=== PATIENT | female | born 1975 | race Asian ===

== ENCOUNTER 2018-04-06 08:06 | Emergency (ER) | payer OTHER ==
[~2018-04-06] VITALS: Wt 78.0 kg
[2018-04-06 08:09] VITALS: BP 130/62; PULSE 111; RESP 18
[2018-04-06] MEDS ORDERED: LORA1TAB PO (08:30)
[2018-04-06] MEDS ORDERED: RISP2TAB93 PO (08:30)
--- NOTE | 2018-04-06 08:35 | ERD ---
ER Documentation Chief Complaint Chief Complaint MEDICATION REFILL HPI This 42-year-old female presents with medication refill referral request. She has a history of bipolar, schizoaffective, anxiety. Is currently homeless but living in a group home. She is awaiting her primary care appointment which is a new doctor. She is recently states that she was in a relationship breakup in another city and is waiting to get her medical care reestablished. She is requesting refills on Risperdal and Ativan. She currently takes Zoloft and Zyprexa as well but has sufficient supply. She denies any homicidal or suicidal ideations, recent illnesses, fevers, chest pain, shortness of breath. ROS All systems reviewed and are negative except as per history of present illness. Medications Home Meds Active Scripts Lorazepam* (Lorazepam*) 1 Mg Tablet, 2 MG PO Q8, #20 TAB Prov:SAHRA SULTANA MD 04/06/18 Risperidone* (Risperdal*) 2 Mg Tablet, 2 MG PO DAILY, #30 TAB Prov:SAHRA SULTANA MD 04/06/18 FmHx Family History: No diabetes, No coronary disease, No other Physical Exam Vitals Vital Signs Date Temp Pulse Resp B/P (MAP) Pulse Ox O2 O2 Flow FiO2 Time Delivery Rate 04/06/18 98.1 111 18 130/62 99 08:09 (84) Physical Exam Const: No acute distress Head: Atraumatic Eyes: Normal Conjunctiva ENT: Normal External Ears, Nose and Mouth. Neck: Full range of motion. No meningismus. Resp: Clear to auscultation bilaterally Cardio: Regular rate and rhythm, no murmurs Abd: Soft, non tender, non distended. Normal bowel sounds Skin: No petechiae or rashes Back: No midline or flank tenderness Ext: No cyanosis, or edema Neur: Awake and alert. Decreased affect, denies homicidal or suicidal ideations. Psych: Normal Mood and Affect Procedures/MDM Patient presents with a history of schizoaffective, anxiety, bipolar requesting medication refills while she awaits psychiatric and primary care in [place] [facility] [place]. Patient is referred to local community health centers although she does have an appointment pending. Patient was advised on prescriptions of benzodiazepines out of the ER. In a short course until she can get in with primary care but advised recurrent refills are not appropriate. We will give her a refill of her Risperdal as well 2 mg daily. Patient denies any homicidal or suicidal ideations and is otherwise well-appearing, has group home and is able to navigate the community. The patient was stable with no new complaints during the ER course. Clinically, there is no current evidence to suggest meningitis, sepsis, acute abdomen, pneumonia, stroke, acute coronary syndrome, pulmonary embolism, aortic dissection or any other emergent condition appearing to require further evaluation or hospitalization. Patient counseled regarding my diagnostic impression and care plan. Prior to discharge all questions answered. Pt agrees with treatment plan and understands strict return precautions. Pt is instructed to follow up with primary care provider within 24-48 hours. Precautionary instructions provided including instructions to return to the ER if not improving or for any worsening or changing symptoms or concerns. Departure Diagnosis: Primary Impression: Bipolar 1 disorder Additional Impression: Encounter for medication refill Condition: Stable Patient Instructions: Taking Medicine Safely, Bipolar Disorder Referrals: [facility] YOU HAVE RECEIVED A MEDICAL SCREENING EXAM AND THE RESULTS INDICATE THAT YOU DO NOT HAVE A CONDITION THAT REQUIRES URGENT TREATMENT IN THE EMERGENCY DEPARTMENT. FURTHER EVALUATION AND TREATMENT OF YOUR CONDITION CAN WAIT UNTIL YOU ARE SEEN IN YOUR DOCTORS OFFICE WITHIN THE NEXT 1-2 DAYS. IT IS YOUR RESPONSIBILITY TO MAKE AN APPOINTMENT FOR FOLOW-UP CARE. IF YOU HAVE A PRIMARY DOCTOR --you should call your primary doctor and schedule an appointment IF YOU DO NOT HAVE A PRIMARY DOCTOR YOU CAN CALL OUR PHYSICIAN REFERRAL HOTLINE AT IF YOU CAN NOT AFFORD TO SEE A PHYSICIAN YOU CAN CHOSE FROM THE FOLLOWING [facility] [address] [facility] [facility] [address] [email or web address] [facility] [address] [facility] [facility] [address] [facility]. [facility] [address] [facility]. [facility]. [address] Additional Instructions: See primary doctor and psychiatry for further evaluation and treatment. SAHRA SULTANA MDb 23, 2019 08:35
== END 2018-04-06 08:45 | disposition home or self-care (01) ==
LOC: FTE 08:06
DX: F31.9 Bipolar disorder, unspecified (principal)
CPT/HCPCS: 99281